=== PATIENT | female | born 1970 | race Caucasian/White ===

== ENCOUNTER 2017-10-24 10:58 | Emergency (ER) | payer MEDICAID ==
[~2017-10-24] VITALS: Ht 154.9 cm; Wt 80.2 kg
[~2017-10-24 10:58] MED LIST: ACLI400A2 INH; ALBU18HF INH; CEFD300C37 PO; DOXY100C15 PO; FLUT1BLS INH; GUAI200T3 PO; IPRA3AMP INH; NICO-486 TD; PRED20TA PO
[2017-10-24] MEDS ORDERED: ONDANSETRON 2MG/ML, 2ML ONE (11:51)
[2017-10-24] MEDS ORDERED: MORPHINE SULFATE 4 MG/ML, 1ML ONE ×2 (11:51→12:47)
[2017-10-24] MEDS ORDERED: SODIUM CHLORIDE FLUSH 10ML SYR IVF ONE (12:00)
[2017-10-24] MEDS ORDERED: CLINDAMYCIN PMX 600MG/50ML 50 ML IV ONE (12:00)
[2017-10-24] MEDS ORDERED: ONDANSETRON 2MG/ML, 2ML IVPush ONE (12:00)
[2017-10-24 12:17] LABS: BASOPHILS # (AUTO) 0.01 x10^3/uL (0-0.1); BASOPHILS % (AUTO) 0 % (0-1); EOSINOPHILS # (AUTO) 0.03 x10^3/uL (0-0.4); EOSINOPHILS % (AUTO) 0 % (1-7); LYMPHOCYTES # (AUTO) 1.08 x10^3/uL (1-3.4); LYMPHOCYTES % (AUTO) 10 % (22-44); MD NO; MEAN CORPUSCULAR HGB CONC 33.7 g/dL (32.4-35.8); MEAN PLATELET VOLUME 8.7 fL (7.4-10.4); MONOCYTES # (AUTO) 0.88 x10^3/uL (0.2-0.8); MONOCYTES % (AUTO) 8 % (2-9); NEUTROPHILS # (AUTO) 8.96 x10^3/uL (1.8-6.8); NEUTROPHILS % (AUTO) 82 % (42-75); PLATELET COUNT 268 x10^3/uL (130-400); RED BLOOD COUNT 5.37 x10^6/uL (3.82-5.3); RED CELL DISTRIBUTION WIDTH 13.6 % (9.6-15.2)
[2017-10-24] MEDS: MORPHINE SULFATE 4 MG/ML, 1ML IVPush PRN ×2 (12:23→13:09)
[2017-10-24 12:31] LABS: ALBUMIN 3.7 g/dL (3.4-5.0); ANION GAP 8 mmol/L (5-15); CALCIUM 8.7 mg/dL (8.5-10.1); CHLORIDE 106 mmol/L (98-107); CREATININE 0.81 mg/dL (0.55-1.02)
[2017-10-24] MEDS ORDERED: CLINDAMYCIN PMX 600MG/50ML 50 ML ONE (12:47)
[2017-10-24] MEDS ORDERED: OMNIPAQUE 350 MG/ML, 100ML BOTTLE ONE (14:21)
[2017-10-24 15:11] VITALS: BP 138/55
== END 2017-10-24 15:14 | disposition home or self-care (01) ==
LOC: ED 15:08
DX: K04.7 Periapical abscess without sinus (principal); J44.9 Chronic obstructive pulmonary disease, unspecified
CPT/HCPCS: 36415; 70491; 80048; 82040; 84703; 85025; 87040; 96365; 96375; 96376; 99285; J2405; Q9967

== ENCOUNTER 2019-08-19 08:55 | Inpatient (IN) | payer MEDICAID ==
[~2019-08-19] VITALS: Ht 154.9 cm; Wt 76.0 kg
[~2019-08-19 08:55] MED LIST changes: -ACLI400A2 INH; +ACLI400A3 INH; +AZIT500T PO; +FLUT1DIS3 INH; +GUAI1TBM11 PO; -GUAI200T3 PO; +GUAI200T37 PO; -IPRA3AMP INH; +IPRA3AMP30 INH; +IPRA3AMP30 NPPB; +NICO-487 TD; +PANT20TA3 PO; +PRED10TA PO; +TIOT18CA INH
[2019-08-19] MEDS ORDERED: SODIUM CHLORIDE 0.9% 1,000 ML IV ONE (09:35)
[2019-08-19 09:53] LABS: MEAN CORPUSCULAR HEMOGLOBIN 31.2 pg (27.0-34.8); MEAN CORPUSCULAR HGB CONC 33.4 g/dL (32.4-35.8); MEAN CORPUSCULAR VOLUME 93.5 fL (80-100); MEAN PLATELET VOLUME 8.5 fL (7.4-10.4); PLATELET COUNT 258 x10^3/uL (130-400); RED BLOOD COUNT 4.71 x10^6/uL (3.82-5.3); RED CELL DISTRIBUTION WIDTH 13.4 % (9.6-15.2)
[2019-08-19] MEDS ORDERED: KETOROLAC 30 MG/1 ML ONE (09:58)
[2019-08-19] MEDS ORDERED: ONDANSETRON 2MG/ML, 2ML ONE (09:58)
[2019-08-19] MEDS ORDERED: KETOROLAC 30 MG/1 ML IVPush ONE (10:00)
[2019-08-19] MEDS ORDERED: SODIUM CHLORIDE 0.9% 1,000ML IVBOLUS ONE (10:00)
[2019-08-19] MEDS ORDERED: ONDANSETRON 2MG/ML, 2ML IVPush ONE (10:00)
[2019-08-19] MEDS ORDERED: SODIUM CHLORIDE FLUSH 10ML SYR IVF ONE (10:00)
[2019-08-19 10:04] LABS: ALANINE AMINOTRANSFERASE 56 U/L (12-78); ALBUMIN 2.6 g/dL (3.4-5.0); ANION GAP 9 mmol/L (5-15); CALCIUM 8.9 mg/dL (8.5-10.1); CHLORIDE 99 mmol/L (98-107)
--- NOTE | 2019-08-19 10:04 | NUR ---
Task RN: IV started, medications administered as ordered and documented. Plan of care updated with patient, questions answered, call roman within reach. Primary RN Madiha updated after interventions.
[2019-08-19 10:07] LABS: ALKALINE PHOSPHATASE 219 U/L (45-117); BILIRUBIN,TOTAL 1.3 mg/dL (0.2-1.0); TOTAL PROTEIN 7.6 g/dL (6.4-8.2)
[2019-08-19 10:16] LABS: BASOPHILS # (AUTO) 0.01 x10^3/uL (0-0.1); BASOPHILS % (AUTO) 0 % (0-1); EOSINOPHILS # (AUTO) 0.01 x10^3/uL (0-0.4); EOSINOPHILS % (AUTO) 0 % (1-7); LYMPHOCYTES # (AUTO) 0.75 x10^3/uL (1-3.4); LYMPHOCYTES % (AUTO) 5 % (22-44); MD SCAN; MONOCYTES # (AUTO) 1.53 x10^3/uL (0.2-0.8); MONOCYTES % (AUTO) 10 % (2-9); NEUTROPHILS # (AUTO) 13.87 x10^3/uL (1.8-6.8); NEUTROPHILS % (AUTO) 86 % (42-75)
[2019-08-19] MEDS ORDERED: SODIUM CHLORIDE FLUSH 10ML SYR IVF PRN (10:30)
[2019-08-19] MEDS ORDERED: CEFTRIAXONE PMX 1GM/50ML 50 ML IVPB ONE (10:30)
[2019-08-19] MEDS ORDERED: AZITHROMYCIN 500 MG in SODIUM CHLORIDE 0.9% 250 ML IVPB ONE (10:30)
[2019-08-19] MEDS ORDERED: POTASSIUM CHLORIDE 20 MEQ TAB.ER.PRT PO ONE (10:30)
[2019-08-19] MEDS ORDERED: CEFTRIAXONE PMX 1GM/50ML 50 ML ONE (10:42)
[2019-08-19] MEDS ORDERED: POTASSIUM CHLORIDE 20 MEQ TAB.ER.PRT ONE (10:45)
[2019-08-19 12:00] VITALS: BP 104/71
[2019-08-19] MEDS ORDERED: NYQUIL (12:16)
[2019-08-19] MEDS ORDERED: ONDANSETRON 2MG/ML, 2ML IVPush PRN (12:30)
[2019-08-19] MEDS ORDERED: ENOXAPARIN 40 MG/0.4 ML SQ SCH (12:30)
[2019-08-19] MEDS ORDERED: hydrALAzine 20 MG/ML, 1ML IVPush PRN (12:30)
[2019-08-19] MEDS: CEFTRIAXONE PMX 1GM/50ML 50 ML IV SCH (13:00)
[2019-08-19] MEDS ORDERED: ALBUTEROL SULFATE 2.5 MG/3 ML NPPB PRN (13:00)
[2019-08-19] MEDS ORDERED: BENZONATATE 100 MG CAPSULE ONE (13:20)
[2019-08-19] MEDS: PANTOPRAZOLE 40 MG IV IVPush SCH (13:42)
[2019-08-19] MEDS: BENZONATATE 100 MG CAPSULE PO SCH ×2 (13:42→20:03)
[2019-08-19] MEDS: GUAIFENESIN ER 600 MG TABLET PO SCH (13:42)
[2019-08-19 14:13] VITALS: BP 104/71
[2019-08-19 15:15] LABS: RAPID INFLUENZA A Negative (Negative); RAPID INFLUENZA B Negative (Negative)
[2019-08-19 18:13] LABS: AMPHETAMINE SCREEN, URINE Negative (Negative); BARBITURATE SCREEN, URINE Negative (Negative); BENZODIAZEPINE SCREEN, URINE Negative (Negative); CANNABINOID SCREEN, URINE Negative (Negative); COCAINE SCREEN, URINE Negative (Negative); METHADONE SCREEN, URINE Negative (Negative); OPIATE SCREEN, URINE Negative (Negative)
[2019-08-19] MEDS: ACETAMINOPHEN 325 MG TABLET PO PRN (20:02)
[2019-08-19 20:06] VITALS: BP 103/71
[2019-08-20] MEDS: GUAIFENESIN ER 600 MG TABLET PO SCH ×3 (00:39→20:59)
[2019-08-20 00:59] VITALS: BP 94/64
[2019-08-20] MEDS: PANTOPRAZOLE 40 MG IV IVPush SCH (01:32)
[2019-08-20] MEDS: ACETAMINOPHEN 325 MG TABLET PO PRN ×2 (05:05→19:37)
[2019-08-20 05:36] LABS: ANION GAP 9 mmol/L (5-15); CALCIUM 9.1 mg/dL (8.5-10.1); CHLORIDE 102 mmol/L (98-107); CREATININE 0.81 mg/dL (0.55-1.02)
[2019-08-20 05:42] LABS: MEAN CORPUSCULAR HEMOGLOBIN 31.2 pg (27.0-34.8); MEAN CORPUSCULAR HGB CONC 33.1 g/dL (32.4-35.8); MEAN CORPUSCULAR VOLUME 94.2 fL (80-100); MEAN PLATELET VOLUME 8.9 fL (7.4-10.4); PLATELET COUNT 265 x10^3/uL (130-400); RED BLOOD COUNT 4.27 x10^6/uL (3.82-5.3)
[2019-08-20 05:58] LABS: BASOPHILS # (AUTO) 0.06 x10^3/uL (0-0.1); BASOPHILS % (AUTO) 0 % (0-1); EOSINOPHILS # (AUTO) 0.04 x10^3/uL (0-0.4); EOSINOPHILS % (AUTO) 0 % (1-7); LYMPHOCYTES # (AUTO) 1.61 x10^3/uL (1-3.4); LYMPHOCYTES % (AUTO) 9 % (22-44); MD SCAN; MONOCYTES # (AUTO) 2.22 x10^3/uL (0.2-0.8); MONOCYTES % (AUTO) 13 % (2-9); NEUTROPHILS # (AUTO) 13.74 x10^3/uL (1.8-6.8); NEUTROPHILS % (AUTO) 78 % (42-75)
[2019-08-20 07:01] VITALS: BP 108/65
[2019-08-20] MEDS ORDERED: POTASSIUM CHLORIDE 20 MEQ TAB.ER.PRT PO ONE ×2 (07:30→08:00)
[2019-08-20] MEDS: BENZONATATE 100 MG CAPSULE PO SCH ×3 (08:18→20:59)
[2019-08-20] MEDS ORDERED: KETOROLAC 30 MG/1 ML ONE (09:23)
[2019-08-20] MEDS: KETOROLAC 30 MG/1 ML IVPush SCH ×3 (09:29→21:59)
[2019-08-20 13:05] VITALS: BP 99/62
[2019-08-20] MEDS: CEFTRIAXONE PMX 1GM/50ML 50 ML IV SCH (13:23)
[2019-08-20 19:30] VITALS: BP 95/61
[2019-08-20] MEDS: PANTOPROZOLE 40MG TABLET PO SCH (20:59)
[2019-08-21 02:08] VITALS: BP 95/56
[2019-08-21] MEDS: KETOROLAC 30 MG/1 ML IVPush SCH ×4 (03:54→22:06)
[2019-08-21] MEDS: ACETAMINOPHEN 325 MG TABLET PO PRN ×4 (03:54→20:05)
[2019-08-21] MEDS: PANTOPROZOLE 40MG TABLET PO SCH ×2 (05:51→15:52)
[2019-08-21 06:46] VITALS: BP 89/61
[2019-08-21] MEDS: GUAIFENESIN ER 600 MG TABLET PO SCH ×2 (08:11→20:05)
[2019-08-21] MEDS: BENZONATATE 100 MG CAPSULE PO SCH ×3 (08:11→20:04)
[2019-08-21] MEDS: SODIUM CHLORIDE 0.9% 1,000 ML IV SCH (08:13)
[2019-08-21 12:43] LABS: MEAN CORPUSCULAR HEMOGLOBIN 31.5 pg (27.0-34.8); MEAN CORPUSCULAR HGB CONC 33.4 g/dL (32.4-35.8); MEAN CORPUSCULAR VOLUME 94.1 fL (80-100); MEAN PLATELET VOLUME 8.9 fL (7.4-10.4); PLATELET COUNT 318 x10^3/uL (130-400); RED BLOOD COUNT 4.27 x10^6/uL (3.82-5.3); RED CELL DISTRIBUTION WIDTH 14.4 % (9.6-15.2)
[2019-08-21 12:51] VITALS: BP 122/81
[2019-08-21 12:58] LABS: BASOPHILS # (AUTO) 0.12 x10^3/uL (0-0.1); BASOPHILS % (AUTO) 1 % (0-1); EOSINOPHILS # (AUTO) 0.11 x10^3/uL (0-0.4); EOSINOPHILS % (AUTO) 1 % (1-7); LYMPHOCYTES # (AUTO) 1.51 x10^3/uL (1-3.4); LYMPHOCYTES % (AUTO) 13 % (22-44); MD SCAN; MONOCYTES # (AUTO) 1.27 x10^3/uL (0.2-0.8); MONOCYTES % (AUTO) 11 % (2-9); NEUTROPHILS % (AUTO) 73 % (42-75)
[2019-08-21] MEDS: CEFTRIAXONE PMX 1GM/50ML 50 ML IV SCH (13:42)
[2019-08-21 19:36] VITALS: BP 102/70
[2019-08-22] MEDS: KETOROLAC 30 MG/1 ML IVPush SCH ×4 (02:52→22:45)
[2019-08-22] MEDS: ACETAMINOPHEN 325 MG TABLET PO PRN ×4 (02:52→22:02)
[2019-08-22] MEDS: SODIUM CHLORIDE 0.9% 1,000 ML IV SCH ×2 (02:53→15:22)
[2019-08-22 03:00] VITALS: BP 111/76
[2019-08-22] MEDS: PANTOPROZOLE 40MG TABLET PO SCH ×2 (05:43→15:21)
[2019-08-22 06:17] LABS: MEAN CORPUSCULAR HGB CONC 32.7 g/dL (32.4-35.8); MEAN CORPUSCULAR VOLUME 94.8 fL (80-100); MEAN PLATELET VOLUME 8.2 fL (7.4-10.4); PLATELET COUNT 376 x10^3/uL (130-400); RED CELL DISTRIBUTION WIDTH 14.1 % (9.6-15.2)
[2019-08-22 06:33] LABS: ALANINE AMINOTRANSFERASE 33 U/L (12-78); ALBUMIN 2.1 g/dL (3.4-5.0); ANION GAP 7 mmol/L (5-15); CALCIUM 8.6 mg/dL (8.5-10.1); CHLORIDE 107 mmol/L (98-107); CREATININE 0.72 mg/dL (0.55-1.02)
[2019-08-22 06:36] LABS: ALKALINE PHOSPHATASE 177 U/L (45-117); BILIRUBIN,TOTAL 0.2 mg/dL (0.2-1.0); TOTAL PROTEIN 6.3 g/dL (6.4-8.2)
[2019-08-22 06:48] VITALS: BP 111/79
[2019-08-22 07:46] LABS: MD YES
[2019-08-22 07:48] LABS: BAND#(MANUAL) 0.28 x10^3/uL; BANDS%(MANUAL) 3 % (0-7); EOS#(MANUAL) 0.28 x10^3/uL (0.0-0.4); EOS% (MANUAL) 3 % (1-7); LYMPH#(MANUAL) 1.32 x10^3/uL (1-3.4); LYMPHS% (MANUAL) 14 % (22-44); METAMYELOCYTES# (MANUAL) 0.28 x10^3/uL (0-0); METAMYELOCYTES% (MANUAL) 3 % (0-1); MONOS#(MANUAL) 1.13 x10^3/uL (0.3-2.7); MONOS% (MANUAL) 12 % (2-9); MYELOCYTES# (MANUAL) 0.19 x10^3/uL (0-0); MYELOCYTES% (MANUAL) 2 % (0-0); REACTIVE LYMPHS # (MANUAL) 0.09 x10^3/uL (0-0); REACTIVE LYMPHS % (MANUAL) 1 % (0-0); SEG#(MANUAL) 5.83 x10^3/uL (1.8-6.8); SEGS% (MANUAL) 62 % (42-75)
[2019-08-22 07:50] LABS: <PLATELET ESTIMATE> ADEQUATE; <PLT MORPHOLOGY> NORMAL PLT MORPH; <RBC MORPHOLOGY> NORMAL
[2019-08-22] MEDS: GUAIFENESIN ER 600 MG TABLET PO SCH ×2 (09:22→20:04)
[2019-08-22] MEDS: BENZONATATE 100 MG CAPSULE PO SCH ×3 (09:23→20:04)
[2019-08-22 13:08] VITALS: BP 114/78
[2019-08-22] MEDS: CEFTRIAXONE PMX 1GM/50ML 50 ML IV SCH (13:09)
[2019-08-22 18:13] VITALS: BP 119/80
[2019-08-23 01:10] VITALS: BP 115/78
[2019-08-23] MEDS: KETOROLAC 30 MG/1 ML IVPush SCH (04:46)
[2019-08-23 07:40] VITALS: BP 120/83
[2019-08-23] MEDS: GUAIFENESIN ER 600 MG TABLET PO SCH ×2 (08:35→21:34)
[2019-08-23] MEDS: BENZONATATE 100 MG CAPSULE PO SCH ×3 (08:35→21:34)
[2019-08-23] MEDS: PANTOPROZOLE 40MG TABLET PO SCH (08:35)
[2019-08-23] MEDS: SODIUM CHLORIDE 0.9% 1,000 ML IV SCH ×2 (08:38→21:34)
[2019-08-23] MEDS: DOXYCYCLINE 100 MG in DEXTROSE 5% 250 ML IV SCH ×2 (09:33→21:34)
[2019-08-23] MEDS: KETOROLAC 30 MG/1 ML IVPush PRN ×2 (09:37→16:24)
[2019-08-23 13:18] VITALS: BP 133/81
[2019-08-23] MEDS: CEFTRIAXONE PMX 1GM/50ML 50 ML IV SCH (13:57)
[2019-08-23 19:12] VITALS: BP 123/80
[2019-08-23] MEDS ORDERED: ZOLPIDEM 5MG TABLET PO PRN (22:30)
[2019-08-24] MEDS: KETOROLAC 30 MG/1 ML IVPush PRN (00:38)
[2019-08-24 00:53] VITALS: BP 130/87
[2019-08-24 07:34] LABS: BASOPHILS # (AUTO) 0.06 x10^3/uL (0-0.1); BASOPHILS % (AUTO) 1 % (0-1); EOSINOPHILS # (AUTO) 0.07 x10^3/uL (0-0.4); EOSINOPHILS % (AUTO) 1 % (1-7); LYMPHOCYTES # (AUTO) 1.44 x10^3/uL (1-3.4); LYMPHOCYTES % (AUTO) 17 % (22-44); MD NO; MEAN CORPUSCULAR HEMOGLOBIN 30.5 pg (27.0-34.8); MEAN CORPUSCULAR HGB CONC 32.7 g/dL (32.4-35.8); MEAN CORPUSCULAR VOLUME 93.3 fL (80-100); MEAN PLATELET VOLUME 8.1 fL (7.4-10.4); MONOCYTES # (AUTO) 0.63 x10^3/uL (0.2-0.8); MONOCYTES % (AUTO) 7 % (2-9); NEUTROPHILS # (AUTO) 6.41 x10^3/uL (1.8-6.8); NEUTROPHILS % (AUTO) 75 % (42-75); PLATELET COUNT 492 x10^3/uL (130-400); RED BLOOD COUNT 3.92 x10^6/uL (3.82-5.3); RED CELL DISTRIBUTION WIDTH 14.2 % (9.6-15.2)
[2019-08-24] MEDS: GUAIFENESIN ER 600 MG TABLET PO SCH (08:52)
[2019-08-24] MEDS: BENZONATATE 100 MG CAPSULE PO SCH (08:52)
[2019-08-24] MEDS: DOXYCYCLINE 100 MG in DEXTROSE 5% 250 ML IV SCH (08:52)
[2019-08-24] MEDS ORDERED: FAMOTIDINE 20 MG TABLET PO SCH (09:00)
[2019-08-24] MEDS ORDERED: LIDO700A20 TD (09:24)
[2019-08-24] MEDS ORDERED: BENZ-17 PO (09:24)
[2019-08-24] MEDS ORDERED: DOXY100T PO (09:24)
[2019-08-24] MEDS ORDERED: CEFD300C37 PO (09:24)
[2019-08-24] MEDS ORDERED: NAPR-685 PO (09:24)
[2019-08-24] MEDS ORDERED: LACT1CAP35 PO (09:24)
[2019-08-24] MEDS ORDERED: LIDODERM 5% PATCH TD SCH (09:30)
[2019-08-24] MEDS ORDERED: FAMO20TA7 PO (09:30)
[2019-08-24 09:34] VITALS: BP 134/84
[2019-08-24] MEDS: CEFTRIAXONE PMX 1GM/50ML 50 ML IV SCH (13:00)
== END 2019-08-24 13:46 | disposition home or self-care (01) | DRG 871 ==
LOC: ED 09:44 → EDIP 10:17 → 4NE 11:53 → 3N 08-22 17:09
PROVIDERS: ADMIT Internal Medicine; ATTEND Internal Medicine
DX: A41.9 Sepsis, unspecified organism (principal); J15.9 Unspecified bacterial pneumonia; J44.0 Chronic obstructive pulmonary disease with (acute) lower respiratory infection; J91.8 Pleural effusion in other conditions classified elsewhere; E87.6 Hypokalemia; I95.9 Hypotension, unspecified; F10.20 Alcohol dependence, uncomplicated; F17.200 Nicotine dependence, unspecified, uncomplicated; K21.9 Gastro-esophageal reflux disease without esophagitis; Z87.11 Personal history of peptic ulcer disease
CPT/HCPCS: 36415; 71045; 71046; 74021; 80048; 80053; 80307; 83605; 83690; 84145; 85025; 87040; 87070; 87205; 87400; 93005; 96361; 96365; 96375; G0378; J0456; J0696; J1885; J2405; J7060; C9113; J7030; J7050

== ENCOUNTER 2020-05-24 14:43 | Emergency (ER) | payer MEDICAID ==
[~2020-05-24] VITALS: Ht 154.9 cm; Wt 97.9 kg
[~2020-05-24 14:43] MED LIST changes: +BENZ-17 PO; +DOXY100T PO; +FAMO20TA7 PO; +LACT1CAP35 PO; +LIDO700A20 TD; +NAPR-685 PO; +NYQUIL; -PANT20TA3 PO; +PANT20TA4 PO
[2020-05-24 15:26] VITALS: BP 122/89
--- NOTE | 2020-05-24 15:26 | NUR ---
PATIENT AMBULATORY TO ROOM FROM [facility]
== END 2020-05-24 15:54 | disposition home or self-care (01) ==
LOC: ED 15:20
DX: J02.0 Streptococcal pharyngitis (principal)
CPT/HCPCS: 87880; 99283

== ENCOUNTER 2020-07-24 11:44 | Emergency (ER) | payer MEDICAID ==
[~2020-07-24] VITALS: Ht 154.9 cm; Wt 83.0 kg
[~2020-07-24 11:44] MED LIST changes: -NICO-487 TD; +NICO-587 TD
[2020-07-24 11:47] VITALS: BP 113/68
--- NOTE | 2020-07-24 11:51 | NUR ---
PT BIB EMS FOR SOB X 3 DAYS. RM AIR SAT IS 95%. PT ALSO CO OF RODRIGUEZ, NVD, BODY ACHES, CHILLS. 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 PT CONNECTED TO ALL MONITORING EQUIPMENT.
== END 2020-07-24 13:00 | disposition home or self-care (01) ==
LOC: ED 12:55
DX: J06.9 Acute upper respiratory infection, unspecified (principal); Z20.828 Contact with and (suspected) exposure to other viral communicable diseases; J45.909 Unspecified asthma, uncomplicated
CPT/HCPCS: 71045; 87635; 99284

== ENCOUNTER 2020-08-13 23:41 | Inpatient (IN) | payer MEDICAID ==
[~2020-08-13] VITALS: Ht 154.9 cm; Wt 87.4 kg
[2020-08-14] MEDS ORDERED: ONDANSETRON 2MG/ML, 2ML IVPush ONE
[2020-08-14] MEDS ORDERED: SODIUM CHLORIDE FLUSH 10ML SYR IVF ONE
[2020-08-14] MEDS ORDERED: HYDROmorphone 1 MG/ML, 1ML INJ ONE ×2 (00:04→02:20)
[2020-08-14] MEDS ORDERED: ONDANSETRON 2MG/ML, 2ML ONE (00:05)
[2020-08-14] MEDS: HYDROmorphone 1 MG/ML, 1ML INJ IV PRN ×2 (00:07→02:23)
--- NOTE | 2020-08-14 00:21 | NUR ---
Lab at bedside.
--- NOTE | 2020-08-14 00:25 | NUR ---
Pt.'s 02 sats down to 88%- placed on 2 L nasal cannula. Up to 92%
[2020-08-14 00:33] LABS: BASOPHILS % (AUTO) 1 % (0-1); EOSINOPHILS % (AUTO) 0 % (1-7); LYMPHOCYTES % (AUTO) 5 % (22-44); MEAN CORPUSCULAR HEMOGLOBIN 29.1 pg (27.0-34.8); MEAN CORPUSCULAR HGB CONC 33.2 g/dL (32.4-35.8); MONOCYTES % (AUTO) 8 % (2-9); NEUTROPHILS % (AUTO) 86 % (42-75); PLATELET COUNT 272 x10^3/uL (130-400); RED BLOOD COUNT 5.37 x10^6/uL (3.82-5.3); RED CELL DISTRIBUTION WIDTH 15.1 % (9.6-15.2)
[2020-08-14] MEDS ORDERED: CEFTRIAXONE PMX 1GM/50ML 50 ML ONE (00:39)
[2020-08-14 00:42] LABS: ALANINE AMINOTRANSFERASE 27 U/L (12-78); ALBUMIN 3.3 g/dL (3.4-5.0); ANION GAP 10 mmol/L (5-15); CALCIUM 9.4 mg/dL (8.5-10.1); CHLORIDE 100 mmol/L (98-107)
--- NOTE | 2020-08-14 00:43 | NUR ---
Blood cultures collected by lab. Walsh now infusing.
[2020-08-14 00:45] LABS: ALKALINE PHOSPHATASE 134 U/L (45-117); BILIRUBIN,TOTAL 1.6 mg/dL (0.2-1.0); TOTAL PROTEIN 8.2 g/dL (6.4-8.2)
--- NOTE | 2020-08-14 00:59 | NUR ---
Pt to imaging
[2020-08-14] MEDS ORDERED: CEFTRIAXONE PMX 1GM/50ML 50 ML IVPB ONE (01:00)
[2020-08-14] MEDS ORDERED: AZITHROMYCIN 500 MG in SODIUM CHLORIDE 0.9% 250 ML IVPB ONE (01:00)
[2020-08-14 01:07] LABS: MD SCAN
--- NOTE | 2020-08-14 01:07 | NUR ---
Pt back from imaging
[2020-08-14] MEDS ORDERED: OMNIPAQUE 350 MG/ML, 75ML BOTTLE ONE (01:09)
[2020-08-14] MEDS ORDERED: SODIUM CHLORIDE FLUSH 10ML SYR IVF PRN (02:00)
[2020-08-14] MEDS ORDERED: SODIUM CHLORIDE 0.9% 1,000ML IVBOLUS ONE (02:00)
--- NOTE | 2020-08-14 02:25 | NUR ---
RN at bedside. 1mg IV dilaudid given. Pt rates pain 10/10 again in chest and lungs. NS infusing.
--- NOTE | 2020-08-14 02:32 | NUR ---
Report called to
--- NOTE | 2020-08-14 03:11 | NUR ---
IVA swabbed and walked to lab.
--- NOTE | 2020-08-14 03:16 | NUR ---
Report to AMBERLY [facility].
[2020-08-14] MEDS ORDERED: PROMETHAZINE 25 MG/ML, 1ML IM PRN (03:30)
[2020-08-14] MEDS ORDERED: POLYETHYLENE GLYCOL 17 GM PACKET PO PRN (03:30)
[2020-08-14] MEDS ORDERED: morphine SULFATE 10 MG/ML, 1ML IVPush PRN (03:30)
[2020-08-14] MEDS ORDERED: ONDANSETRON 2MG/ML, 2ML IVPush PRN (03:30)
[2020-08-14] MEDS ORDERED: BISACODYL 10 MG SUPP PR PRN (03:30)
[2020-08-14] MEDS ORDERED: DOCUSATE 100 MG CAPSULE PO PRN (03:30)
[2020-08-14] MEDS ORDERED: hydrALAzine 20 MG/ML, 1ML IVPush PRN (03:30)
[2020-08-14] MEDS: ENOXAPARIN 40 MG/0.4 ML SQ SCH (03:49)
[2020-08-14] MEDS: SODIUM CHLORIDE 0.9% 1,000 ML IV SCH ×2 (03:49→13:54)
[2020-08-14 04:17] VITALS: BP 109/68
[2020-08-14] MEDS: OXYcodone IR 5MG TABLET PO PRN ×4 (04:43→21:37)
[2020-08-14 08:08] VITALS: BP 112/71
[2020-08-14] MEDS: KETOROLAC 30 MG/1 ML IVPush PRN ×2 (09:27→16:41)
[2020-08-14] MEDS: POTASSIUM CHLORIDE 20 MEQ TAB.ER.PRT PO SCH ×2 (09:30→16:37)
[2020-08-14] MEDS: ACETAMINOPHEN 325 MG TABLET PO PRN (09:31)
[2020-08-14] MEDS: ALBUTEROL-IPRATROPIUM MDI INH INH SCH ×3 (10:33→21:36)
[2020-08-14 13:05] VITALS: BP 123/69
[2020-08-14 18:54] VITALS: BP 105/61
[2020-08-14] MEDS: ONDANSETRON ODT 4 MG PO PRN (21:36)
[2020-08-14] MEDS: CEFTRIAXONE PMX 2GM/50ML 50 ML IVPB SCH (23:20)
[2020-08-15] MEDS: AZITHROMYCIN 500 MG in SODIUM CHLORIDE 0.9% 250 ML IV SCH ×2 (00:20→23:58)
[2020-08-15 00:31] VITALS: BP 107/63
[2020-08-15] MEDS: ALBUTEROL-IPRATROPIUM MDI INH INH SCH ×4 (03:00→21:17)
[2020-08-15] MEDS: ENOXAPARIN 40 MG/0.4 ML SQ SCH (03:01)
[2020-08-15] MEDS: OXYcodone IR 5MG TABLET PO PRN ×2 (05:14→09:22)
[2020-08-15] MEDS: KETOROLAC 30 MG/1 ML IVPush PRN ×2 (05:21→19:16)
[2020-08-15] MEDS: ONDANSETRON ODT 4 MG PO PRN (05:34)
[2020-08-15 06:27] VITALS: BP 86/54
[2020-08-15 08:26] VITALS: BP 93/61
[2020-08-15] MEDS: ACETAMINOPHEN 325 MG TABLET PO PRN (09:22)
[2020-08-15 10:33] LABS: ALANINE AMINOTRANSFERASE 30 U/L (12-78); ALBUMIN 2.6 g/dL (3.4-5.0); ANION GAP 6 mmol/L (5-15); CALCIUM 8.8 mg/dL (8.5-10.1); CHLORIDE 105 mmol/L (98-107)
[2020-08-15 10:39] LABS: BASOPHILS % (AUTO) 0 % (0-1); EOSINOPHILS % (AUTO) 1 % (1-7); LYMPHOCYTES % (AUTO) 14 % (22-44); MEAN CORPUSCULAR HEMOGLOBIN 29.1 pg (27.0-34.8); MEAN CORPUSCULAR HGB CONC 32.5 g/dL (32.4-35.8); MEAN PLATELET VOLUME 8.7 fL (7.4-10.4); MONOCYTES % (AUTO) 11 % (2-9); NEUTROPHILS % (AUTO) 73 % (42-75); PLATELET COUNT 224 x10^3/uL (130-400); RED BLOOD COUNT 4.31 x10^6/uL (3.82-5.3); RED CELL DISTRIBUTION WIDTH 15.1 % (9.6-15.2)
[2020-08-15 10:42] LABS: ALKALINE PHOSPHATASE 106 U/L (45-117); BILIRUBIN,TOTAL 0.3 mg/dL (0.2-1.0); CHOL/HDL RATIO 2.9; CHOLESTEROL, TOTAL 133 mg/dL (140-239); CREATININE 0.79 mg/dL (0.55-1.02); HDL CHOL % 35 % (28-40); HDL CHOLESTEROL (DIRECT) 46 mg/dL (40-60); LDL CHOLESTEROL,CALCULATED 52 mg/dL (54-169); LDL/HDL RATIO 1.1 (0.5-3.0); TOTAL PROTEIN 6.6 g/dL (6.4-8.2); TRIGLYCERIDES 173 mg/dL (50-200); VLDL CHOLESTEROL 35 mg/dL (0-25)
[2020-08-15 10:43] LABS: MD NO
[2020-08-15 12:30] VITALS: BP 93/63
[2020-08-15 21:12] VITALS: BP 100/68
[2020-08-15] MEDS: CEFTRIAXONE PMX 2GM/50ML 50 ML IVPB SCH (23:02)
[2020-08-16 00:24] VITALS: BP 111/71
[2020-08-16] MEDS: ALBUTEROL-IPRATROPIUM MDI INH INH SCH ×4 (03:14→21:38)
[2020-08-16] MEDS: ENOXAPARIN 40 MG/0.4 ML SQ SCH (03:14)
[2020-08-16 05:09] LABS: HCT (SEDRATE) 37.6 % (34.6-47.8)
[2020-08-16 05:13] LABS: BASOPHILS % (AUTO) 1 % (0-1); EOSINOPHILS % (AUTO) 2 % (1-7); LYMPHOCYTES % (AUTO) 19 % (22-44); MEAN CORPUSCULAR HEMOGLOBIN 29.3 pg (27.0-34.8); MONOCYTES % (AUTO) 11 % (2-9); NEUTROPHILS % (AUTO) 68 % (42-75); PLATELET COUNT 245 x10^3/uL (130-400); RED BLOOD COUNT 4.22 x10^6/uL (3.82-5.3); RED CELL DISTRIBUTION WIDTH 14.9 % (9.6-15.2)
[2020-08-16 05:14] LABS: MD NO
[2020-08-16 05:24] LABS: ALANINE AMINOTRANSFERASE 26 U/L (12-78); ALBUMIN 2.4 g/dL (3.4-5.0); ANION GAP 6 mmol/L (5-15); CALCIUM 8.6 mg/dL (8.5-10.1); CHLORIDE 111 mmol/L (98-107); CREATININE 0.58 mg/dL (0.55-1.02)
[2020-08-16 05:33] LABS: ALKALINE PHOSPHATASE 100 U/L (45-117); BILIRUBIN,TOTAL 0.1 mg/dL (0.2-1.0); TOTAL PROTEIN 6.3 g/dL (6.4-8.2)
[2020-08-16 07:06] VITALS: BP 105/64
[2020-08-16] MEDS ORDERED: GUAIFENESIN ER 600 MG TABLET ONE (08:31)
[2020-08-16] MEDS: KETOROLAC 30 MG/1 ML IVPush PRN (08:33)
[2020-08-16] MEDS: GUAIFENESIN ER 600 MG TABLET PO SCH ×2 (08:33→21:38)
[2020-08-16 12:22] VITALS: BP 96/68
[2020-08-16] MEDS: LACTOBACILLUS CHEW TABLET PO SCH ×2 (16:15→21:38)
[2020-08-16 18:56] VITALS: BP 108/71
[2020-08-16] MEDS: CEFTRIAXONE PMX 2GM/50ML 50 ML IVPB SCH (23:10)
[2020-08-17] MEDS: AZITHROMYCIN 500 MG in SODIUM CHLORIDE 0.9% 250 ML IV SCH (00:10)
[2020-08-17 00:33] VITALS: BP 116/83
[2020-08-17] MEDS: ENOXAPARIN 40 MG/0.4 ML SQ SCH (03:11)
[2020-08-17] MEDS: ALBUTEROL-IPRATROPIUM MDI INH INH SCH ×2 (03:12→09:08)
[2020-08-17 07:05] VITALS: BP 99/67
[2020-08-17] MEDS ORDERED: DOXYCYCLINE 100MG CAP PO SCH (09:00)
[2020-08-17] MEDS ORDERED: AMOXICILLIN 500 MG CAPSULE PO SCH (09:00)
[2020-08-17] MEDS ORDERED: ACETAMINOPHEN 325 MG TABLET PO PRN (09:00)
[2020-08-17] MEDS: LACTOBACILLUS CHEW TABLET PO SCH (09:07)
[2020-08-17] MEDS: GUAIFENESIN ER 600 MG TABLET PO SCH (09:07)
[2020-08-17] MEDS: KETOROLAC 30 MG/1 ML IVPush PRN (09:13)
[2020-08-17 12:15] VITALS: BP 106/70
== END 2020-08-17 14:53 | disposition home or self-care (01) | DRG 871 ==
LOC: ED 08-14 00:11 → EDIP 08-14 03:09 → 4WST 08-14 03:36 → DCLOUNGE 08-17 14:45
PROVIDERS: ADMIT Internal Medicine; ATTEND Internal Medicine
DX: A41.9 Sepsis, unspecified organism (principal); J15.9 Unspecified bacterial pneumonia; J96.01 Acute respiratory failure with hypoxia; E87.1 Hypo-osmolality and hyponatremia; J44.0 Chronic obstructive pulmonary disease with (acute) lower respiratory infection; E66.9 Obesity, unspecified; Z20.822 Contact with and (suspected) exposure to COVID-19; E87.6 Hypokalemia; F10.10 Alcohol abuse, uncomplicated; G47.30 Sleep apnea, unspecified; F17.210 Nicotine dependence, cigarettes, uncomplicated; Z80.0 Family history of malignant neoplasm of digestive organs; Z80.42 Family history of malignant neoplasm of prostate; Z91.19 Patient's noncompliance with other medical treatment and regimen; Z68.36 Body mass index [BMI] 36.0-36.9, adult
CPT/HCPCS: 36415; 71045; 71275; 80053; 80061; 83605; 83735; 84145; 84443; 85025; 85651; 86140; 87040; 93005; G0378; J0456; J0696; J1170; J1650; J1885; J2405; Q0162; Q9967; J7030; J7050; U0003

== ENCOUNTER 2020-09-11 20:48 | Emergency (ER) | payer MEDICAID ==
[~2020-09-11] VITALS: Ht 154.9 cm; Wt 73.0 kg
--- NOTE | 2020-09-11 21:06 | NUR ---
ERP at bedside for evaluation.
--- NOTE | 2020-09-11 21:10 | NUR ---
Pt crying in pain, smells of etoh says has been drinking. Positioned, ice for comfort waiting for order for pain meds.
[2020-09-11] MEDS ORDERED: ONDANSETRON 2MG/ML, 2ML ONE (21:14)
[2020-09-11] MEDS ORDERED: MORPHINE SULFATE 4 MG/ML, 1ML ONE ×2 (21:15→21:27)
[2020-09-11] MEDS: MORPHINE SULFATE 4 MG/ML, 1ML IVPush PRN ×2 (21:20→21:30)
--- NOTE | 2020-09-11 21:21 | NUR ---
Medicated per order for pain, pt screaming moaning. Lab here drawing blood, pt to go to xray next. On cont pulse ox. Will continue to monitor.
[2020-09-11 21:29] LABS: BASOPHILS % (AUTO) 1 % (0-1); EOSINOPHILS % (AUTO) 1 % (1-7); LYMPHOCYTES % (AUTO) 17 % (22-44); MEAN CORPUSCULAR HEMOGLOBIN 29.6 pg (27.0-34.8); MEAN CORPUSCULAR HGB CONC 33.9 g/dL (32.4-35.8); MEAN PLATELET VOLUME 8.3 fL (7.4-10.4); MONOCYTES % (AUTO) 9 % (2-9); NEUTROPHILS % (AUTO) 73 % (42-75); PLATELET COUNT 253 x10^3/uL (130-400); RED BLOOD COUNT 5.08 x10^6/uL (3.82-5.3); RED CELL DISTRIBUTION WIDTH 14.6 % (9.6-15.2)
[2020-09-11 21:30] LABS: MD NO
[2020-09-11] MEDS ORDERED: ONDANSETRON 2MG/ML, 2ML IVPush ONE (21:30)
[2020-09-11] MEDS ORDERED: SODIUM CHLORIDE FLUSH 10ML SYR IVF ONE (21:30)
--- NOTE | 2020-09-11 21:30 | NUR ---
Remedicated with morphine, pt vss screaming states previous doses have not helped at all.
--- NOTE | 2020-09-11 21:33 | NUR ---
Pt placed on 3L o2 NC for sats 89%. Repositioned head.
[2020-09-11 21:41] LABS: ALANINE AMINOTRANSFERASE 41 U/L (12-78); ALBUMIN 3.7 g/dL (3.4-5.0); ANION GAP 10 mmol/L (5-15); CALCIUM 8.7 mg/dL (8.5-10.1); CHLORIDE 106 mmol/L (98-107); CREATININE 0.73 mg/dL (0.55-1.02)
--- NOTE | 2020-09-11 21:42 | NUR ---
Taken to xray on o2.
[2020-09-11 21:44] LABS: ALKALINE PHOSPHATASE 109 U/L (45-117); BILIRUBIN,TOTAL 0.4 mg/dL (0.2-1.0); TOTAL PROTEIN 7.5 g/dL (6.4-8.2)
[2020-09-11] MEDS ORDERED: HYDROmorphone 1 MG/ML, 1ML INJ ONE (22:00)
[2020-09-11] MEDS ORDERED: HYDROmorphone 1 MG/ML, 1ML INJ IV ONE (22:00)
--- NOTE | 2020-09-11 22:05 | NUR ---
Medicated per order, Dr Blankenship at bedside. On cont pulse ox and b/p. On o2.
--- NOTE | 2020-09-11 22:15 | NUR ---
EMT at bedside to splint now. Pt was premedicated, but screaming in pain.
--- NOTE | 2020-09-11 22:25 | NUR ---
coaptation splint placed on pts left upper arm. PMS intact with appropriate capilary refill time.
--- NOTE | 2020-09-11 22:47 | NUR ---
Post splint vicente. pt now resting calmly, o2 sat stable at 97% on 2L.
--- NOTE | 2020-09-11 22:48 | NUR ---
Requested to ERP possible admission as pt lives on [address] and has very large cart to push, pt states she doesn't see how she is going to be able to get around with splint and all her belongings/pain.
--- NOTE | 2020-09-11 22:59 | NUR ---
Pt resting now, on cont pulse ox. Neto continue to monitor.
--- NOTE | 2020-09-12 00:19 | NUR ---
Sleeping, left arm elevated, o2 sats stable, RR 14. Will continue to monitor.
--- NOTE | 2020-09-12 01:03 | NUR ---
BEDSIDE REPORT RECEIVED FROM RUBIO GAMING
--- NOTE | 2020-09-12 01:05 | NUR ---
PT SITTING UPRIGHT ON GURNEY, RESTING COMFORTABLY, ABLE TO DOZE OFF. LEFT ARM ELEVATED. PT DENIES ANY NEEDS AT THIS TIME. CALL LIGHT AND BELONGINGS WITHIN REACH. CONTINUOUS PULSE OX MONITORING IN PLACE.
--- NOTE | 2020-09-12 03:45 | NUR ---
PT INCREASINGLY AGITATED WITH ED STAFF, BEGAN YELLING "I NEED SOME DAMN PAIN MEDS, I NEED TO STAY IN THIS HOSPITAL. YOU HATE HOMELESS PEOPLE IT'S OBVIOUS. JUST GIVE ME A PHONE AND ILL CALL AN AMBULANCE TO ANOTHER HOSPITAL, THEY MIGHT ACTUALLY NOT CARE I'M HOMELESS". DISCUSSED WITH PT, PT AGREEABLE AND VERBALIZED UNDERSTANDING OF THE SITUATION AND NEED FOR D/C. ERP AWARE AND AT BEDSIDE DISCUSSING PLAN OF CARE AND D/C WITH PT. PT AGREES AND VERBALIZED UNDERSTANDING OF D/C INSTRUCTIONS AND NEEDED FOLLOW UP.
--- NOTE | 2020-09-12 04:01 | NUR ---
THIS RN ASSISTING PT TO DRESSING INTO PERSONAL CLOTHING AND OUT OF HOSPITAL GOWN. PT AMBULATORY WITH STEADY GAIT TO BATHROOM. PT PLACED IN SLING PER ERP ORDER AND TOLERATED WELL. PT OFFERED TAXI VOUCHER AND BUS VOUCHER BUT REFUSED UPON D/C. PT AMBULATORY TO WAITING ROOM UPON D/C AND VERBALIZED UNDERSTANDING OF D/C INSTRUCTIONS AND NEEDED FOLLOW UP. PT DENIES ANY ADDITIONAL QUESTIONS OR NEEDS AT THIS TIME.
[2020-09-12 04:13] VITALS: BP 110/56
== END 2020-09-12 04:15 | disposition home or self-care (01) ==
LOC: ED 21:31
DX: S42.202A Unspecified fracture of upper end of left humerus, initial encounter for closed fracture (principal); F10.229 Alcohol dependence with intoxication, unspecified; J45.909 Unspecified asthma, uncomplicated; E87.6 Hypokalemia; W01.0XXA Fall on same level from slipping, tripping and stumbling without subsequent striking against object, initial encounter; Y93.89 Activity, other specified; Y92.89 Other specified places as the place of occurrence of the external cause; Y99.8 Other external cause status; Y90.0 Blood alcohol level of less than 20 mg/100 ml
CPT/HCPCS: 29505; 36415; 71045; 73030; 80053; 80320; 85025; 93005; 96374; 96375; 99285; J1170; J2270; J2405; G0480

== ENCOUNTER 2020-12-25 21:31 | Emergency (ER) | payer MEDICAID ==
[~2020-12-25] VITALS: Ht 165.1 cm; Wt 68.0 kg
[2020-12-25 21:35] VITALS: BP 148/101
--- NOTE | 2020-12-25 21:37 | NUR ---
PT SEEN BY PA IN TRIAGE. AWARE OF PLAN FOR ABX & DC.
[2020-12-25] MEDS ORDERED: AMOXICILLIN 500 MG CAPSULE PO ONE (22:30)
[2020-12-25] MEDS ORDERED: IBUPROFEN 600 MG TABLET PO ONE (22:30)
[2020-12-25] MEDS ORDERED: AMOXICILLIN 500 MG CAPSULE ONE (22:53)
[2020-12-25] MEDS ORDERED: IBUPROFEN 600 MG TABLET ONE (22:53)
== END 2020-12-25 23:05 | disposition home or self-care (01) ==
LOC: ED 22:15
DX: K04.7 Periapical abscess without sinus (principal); K02.9 Dental caries, unspecified; J44.9 Chronic obstructive pulmonary disease, unspecified
CPT/HCPCS: 99283